=== PATIENT | female | born 1995 | race Caucasian/White ===

== ENCOUNTER 2020-06-01 11:11 | Emergency (ER) | payer OTHER, BC, SELFPAY ==
--- NOTE | ~2020-06-01 | XR_ITS ---
XR sacrum coccyx min 2V, XR lumbar spine min 4V 06/01/2020 12:39 (accession [id number]), 06/01/2020 12:40 (accession [id number]) Indication: Low back and sacral pain after fall Procedure: 5 views lumbar spine and 3 views sacrum/coccyx Comparison: No prior studies for comparison. Findings: No fracture, subluxation or dislocation. Sacral foramen are symmetric. Normal lumbar alignm ent. Mild disc narrowing at L5-S1. No evidence for spondylolisthesis. Pelvic rings are intact. Impression: 1: No acute fracture. Reviewed, dictated and finalized at location A. [employer] Impression: 1: No acute fracture. Impression: 1: No acute fracture.
[2020-06-01 11:15] VITALS: BP 150/100; PULSE 68; RESP 16; TEMP 36.2; O2SAT 100
[2020-06-01] MEDS: diazePAM (*CRX) 5 MG TABLET PO (12:23)
[2020-06-01] MEDS: KETOROLAC (*BKC) 60 MG/2 ML VIAL IM (12:25)
--- NOTE | 2020-06-01 13:13 | ED.GENADULT ---
HPI - General Adult General Chief complaint: Back Pain/Injury Stated complaint: back pain after fall at work Time Seen by Provider: 06/01/20 11:29 Source: patient Mode of arrival: ambulatory Limitations: no limitations History of Present Illness HPI narrative: Patient is a 24-year-old female who slipped at work injuring her low back landed on her buttock where she has mid line lower lumbar pain patient denies any other injuries or complaints at this time is not taken anything for her symptoms patient presents in no distress with normal gait Related Data Allergies Allergy/AdvReac Type Severity Reaction Status Date / Time No Known Allergies Allergy Verified 06/01/20 11:18 Review of Systems Review of Systems: All systems reviewed & are unremarkable except as noted in HPI and below [facility] Social History Social History (Updated 06/01/20 @ 13:15 by Jose Orourke PA-C) Smoking status: Never smoker Exam Narrative: Exam Narrative: GENERAL: Well-appearing, obese, and in no acute distress. HEAD: Normocephalic, atraumatic. EYES: PERRLA and EOMI. ENT: Nares clear, no rhinorrhea or epistaxis. Mucous membranes moist. CHEST: Clear to auscultation. No respiratory distress. No wheezes rales or rhonchi HEART: Regular rate and rhythm. No murmur heard. EXTREMITIES: Normal range of motion. No edema. Midline lumbar tenderness no thoracic or cervical tenderness SKIN: Warm, dry, no rash. NEURO: No focal deficits. Alert and oriented x3. Normal speech and gait PSYCH: Normal mood and affect. Course Course Emergency Course: Patient with negative radiographs improvement with medication will be discharged home Vital Signs Vital signs: Vital Signs Temperature 97.1 F L 06/01/20 11:15 Pulse Rate 68 06/01/20 11:15 Respiratory Rate 16 06/01/20 11:15 Blood Pressure 150/100 H 06/01/20 11:15 Pulse Oximetry 100 06/01/20 11:15 Temperature 97.1 F L 06/01/20 11:15 Pulse Rate 68 06/01/20 11:15 Respiratory Rate 16 06/01/20 11:15 Blood Pressure 150/100 H 06/01/20 11:15 Pulse Oximetry 100 06/01/20 11:15 Medical Decision Making [facility] Narrative Medical decision making narrative: Patients pain is positional in nature and localized to back without signs of cord compression or cauda equina based on neurological exam, skeletal exam and history. No fever or other significant factors to suggest osteomyelitis or spinal epidural abscess. No symptoms or signs to suggest pain is referred from abdominal or / cardiopulmonary sources. No pulsatile masses noted on exam. Patient ambulates with steady gait and is stable for outpatient management given case findings. Vital Signs Vital Signs: Vital Signs Temperature 97.1 F L 06/01/20 11:15 Pulse Rate 68 06/01/20 11:15 Respiratory Rate 16 06/01/20 11:15 Blood Pressure 150/100 H 06/01/20 11:15 Pulse Oximetry 100 06/01/20 11:15 Temperature 97.1 F L 06/01/20 11:15 Pulse Rate 68 06/01/20 11:15 Respiratory Rate 16 06/01/20 11:15 Blood Pressure 150/100 H 06/01/20 11:15 Pulse Oximetry 100 06/01/20 11:15 Imaging Data Radiologist's impression: ITS Impressions Lumbar Spine X-Ray 06/01/20 12:41 Impression: 1: No acute fracture. Sacrum and Coccyx X-Ray 06/01/20 12:41 Impression: 1: No acute fracture. Discharge Plan Discharge Clinical Impression: Acute low back pain Patient Disposition: Home, Self-Care Condition: Stable Instructions: Antibiotic Form, Acute Low Back Pain (ED) Additional Instructions: Medications as needed and prescribed. Limit lifting and bending. You may apply heat or cold to the area as needed. Follow up with your doctor for further care in the next 7 days. Contact your doctor or return to the emergency department if you develop problems with bladder or bowel function, weakness or loss of feeling in one or both of your legs, or any other serious concerns. Prescriptions: New n
== END 2020-06-01 13:26 | disposition home or self-care (01) ==
PROVIDERS: Emergency Provider Emergency Medicine; PCP Family Medicine
DX: S39.92XA Unspecified injury of lower back, initial encounter (principal); W01.0XXA Fall on same level from slipping, tripping and stumbling without subsequent striking against object, initial encounter
CPT/HCPCS: 72110; 72220; 96372; 99283; A9270; J1885

== ENCOUNTER 2021-07-11 11:12 | Outpatient (CLI) | payer BC, SELFPAY ==
--- NOTE | ~2021-07-11 | US_ITS ---
EXAMINATION: US OB /maternal detail EXAM DATE: 07/11/2021 12:17 INDICATION: anatomy survey. 2nd trimester. TECHNIQUE: Pelvic obstetrical transabdominal sonogram was performed by a technologist. There are mu ltiple grayscale and Doppler images available for interpretation. There are no earlier studies of th is gestation for comparison. FINDINGS: There is a single fetus identified in breech presentation with a heart rate of 144 beats pe r minute. The placenta is located in the anterior fundal position. Placental margin to internal cervi david os distance is 6 cm. There is no sonographic evidence of retroplacental hemorrhage identified. Th ere is subjectively expected amount of amniotic fluid. BIOMETRIC DATA: Biparietal diameter (BPD): 3.9 cm ----------------> 17 weeks 6 days. Head circumference (HC): 14.8 cm ----------------> 18 weeks 0 days. Abdominal circumference (AC): 12.8 cm ----------> 18 weeks 3 days. Femur length (FL): 2.5 cm --------------------------> 17 weeks 3 days. These measurements are concordant. HC/AC ratio is 1.16 (The 5th -- 95th percentile range is 1.08-1.27. Estimated weight is 216 g +/- 32 g. This is the 40th percentile when the currently reported cl inical gestation age 18 weeks 0 days, clinical estimated date of delivery (SHIRLEY-OPE) 12/12 is used. Fet al estimated gestational age based on measurements from this exam is also 18 weeks 0 days, with an es timated date of delivery (SHIRLEY-AUA) 12/12. ANATOMIC SURVEY: The following anatomy is identified and is sonographically normal in appearance: Cerebral ventricles Cavum septum pellucidum Cerebellum Cisterna magna Nuchal fold CTL-spine Four-chamber heart Cardiac outflow tracts Diaphragm Stomach Kidneys Bladder Three-vessel cord Cord insertion Extremities Nose/lips IMPRESSION: 1. Single fetus in breech presentation with heart rate 144 beats per minute. 2. Estimated weight of 216 grams, 40th percentile using the currently reported clinical gestat ion age of 18 weeks 0 days, SHIRLEY(OPE) 6/18. 3. Normal anatomic survey. Reviewed, dictated and finalized at location G. AL WINDER IMPRESSION: 1. Single fetus in breech presentation with heart rate 144 beats per minute. 2. Estimated weight of 216 grams, 40th percentile using the currently re ported clinical gestation age of 18 weeks 0 days, SHIRLEY(OPE) 12/12. 3. Normal anatomic survey.
== END 2021-07-11 11:13 ==
LOC: MICIMG 11:13
PROVIDERS: Visit Provider Obstetrics & Gynecology Gynecology
DX: O36.63X2 Maternal care for excessive fetal growth, third trimester, fetus 2 (principal); Z3A.18 18 weeks gestation of pregnancy
CPT/HCPCS: 76805

== ENCOUNTER 2021-08-31 10:41 | Outpatient (CLI) | payer BC, SELFPAY ==
--- NOTE | ~2021-08-31 | US_ITS ---
EXAMINATION: US OB follow up DATE: 08/31/2021 11:03 INDICATION: Size greater than dates during second trimester TECHNIQUE: Real-time ultrasound of the pelvis was performed. The interpreting radiologist was not pre sent for the study. COMPARISON: 07/11/2021 FINDINGS: There is a single living fetus in vertex presentation. The placenta is anterior/fundal and 11.5 cm from the internal cervical os. cardiac activity and movement are noted. hea rt rate is 147 beats per minute (bpm). The amniotic fluid index is 13.3 cm which is normal (normal ra nge: 9.7 cm to 22.1 cm). The following biometric data were obtained: Biparietal diameter (BPD): 6.3 cm; head circumference (HC): 23.8 cm; abdominal circumference (AC): 20 .3 cm; femur length (FL): 4.5 cm. These measurements are concordant. Estimated weight is 458 g +/- 113 g, which correlates with the 28th percentile when 12/12/2021 i s used as estimated date of delivery. As single measurements, these parameters are each equal to the following estimated gestational ages w ith ranges of +/- 2 standard deviations: BPD: 25 weeks 3 days ( 23 weeks 1 days - 27 weeks 4 days). HC: 25 weeks 6 days ( 23 weeks 6 days - 28 weeks 0 days). AC: 25 weeks 0 days ( 22 weeks 5 days - 27 weeks 1 days). FL: 24 weeks 5 days ( 22 weeks 5 days - 26 weeks 6 days). estimated gestational age based solely on measurements from this exam is 25 weeks 2 days +/- 1 weeks 5 days. IMPRESSION: 1. Single living fetus in vertex presentation. 2. Normal amniotic fluid index. 3. Estimated weight is 458 g +/- 113 g, which correlates with the 28th percentile when 2 is used as estimated date of delivery. Reviewed, dictated and finalized at location B. NE BUILDER IMPRESSION: 1. Single living fetus in vertex presentation. 2. Normal amniotic fluid index. 3. Estimated weight is 458 g +/- 113 g, which correlates with the 28th pe rcentile when 12/12/2021 is used as estimated date of delivery.
== END 2021-08-31 10:42 ==
PROVIDERS: Visit Provider Obstetrics & Gynecology Gynecology
DX: O36.63X0 Maternal care for excessive fetal growth, third trimester, not applicable or unspecified (principal)
CPT/HCPCS: 76816

== ENCOUNTER 2021-09-28 10:03 | Outpatient (CLI) | payer BC, SELFPAY ==
--- NOTE | ~2021-09-28 | US_ITS ---
EXAMINATION: US OB follow up DATE: 09/28/2021 10:22 INDICATION: Estimated size greater than expected for estimated gestational age during late seco nd trimester. TECHNIQUE: Real-time ultrasound of the pelvis was performed. The interpreting radiologist was not pre sent for the study. COMPARISON: 08/31/2021 FINDINGS: There is a single living fetus in vertex presentation. The placenta is anterior fundal. heart rate is 147 beats per minute (bpm). The amniotic fluid index is 15.3 cm, which is normal (5th%-95%: 9.2-23.1 cm at 25 weeks estimated gestational age). 7.3 The following biometric data were obtained: BPD: 7.3 cm -> 29 weeks 2 days Head circumference: 27.5 cm -> 30 weeks 0 days Abdominal circumference: 25.4 cm -> 29 weeks 4 days Femur length: 5.8 cm -> 30 weeks 3 days These measurements are concordant. Head circumference to abdominal circumference ratio: 1.08 (normal range 0.98-1.19). Estimated weight: 1465 g (+/-) 220 g or 3 lbs. 4 oz. (+/-) 8 oz. IMPRESSION: 1. Single living fetus in vertex presentation with heart rate of 147 bpm. 2. Normal amniotic fluid index of 15.3 cm. 3. Estimated weight is 58th percentile by Hadlock criteria when 12/12/2021 is used as the estima shiela date of delivery (SHIRLEY). Please correlate with clinical information or earlier ultrasounds for mos t accurate SHIRLEY. Reviewed, dictated and finalized at location B. IMPRESSION: 1. Single living fetus in vertex presentation with heart rate of 147 bpm. 2. Normal amniotic fluid index of 15.3 cm. 3. Estimated weight is 58th percentile by Hadlock criteria when 12/12/2021 is used as the estimated date of delivery (SHIRLEY). Please correlate with clinica l information or earlier ultrasounds for most accurate SHIRLEY.
== END 2021-09-28 10:04 ==
PROVIDERS: Visit Provider Obstetrics & Gynecology Gynecology
DX: O36.63X0 Maternal care for excessive fetal growth, third trimester, not applicable or unspecified (principal); Z3A.00 Weeks of gestation of pregnancy not specified
CPT/HCPCS: 76816

== ENCOUNTER 2021-11-11 14:46 | Outpatient (CLI) | payer BC, SELFPAY ==
--- NOTE | ~2021-11-11 | US_ITS ---
EXAMINATION: US OB follow up DATE: 11/11/2021 15:17 INDICATION: Gestational size greater than dates. TECHNIQUE: Real-time transabdominal obstetric ultrasound. FINDINGS: Comparison to multiple prior studies sequentially, with oldest reviewed study dated 022. There is a single living fetus in vertex presentation. The placenta is anterior/fundal without place nta previa. cardiac activity and movement is noted with a heart rate of 151 beats per minute. T he amniotic fluid volume is normal. DUC measures 13.3 cm. The following biometric data were obtained: BPD: 84mm corresponds to gestational age 33 weeks 4 days. Head circumference: 307mm corresponds to gestational age 34 weeks 2 days. Abdominal circumference: 328mm corresponds to gestational age 36 weeks 5 days. Femur length: 70mm corresponds to gestational age 35 weeks 6 days. Estimated weight: 2795grams +/- 419grams, 58.5% by Hadlock method. IMPRESSION: 1. Single living intrauterine in vertex presentation with an estimated gestational age of 35 weeks 4 days by inititial ultrasound. EDC by initial ultrasound of 12/12/2021 Appropriate interval growth. 2. Normal placenta. Reviewed, dictated and finalized at location B. IMPRESSION: 1. Single living intrauterine in vertex presentation with an estimat ed gestational age of 35 weeks 4 days by inititial ultrasound. EDC by initial u ltrasound of 12/12/2021 Appropriate interval growth. 2. Normal placenta.
== END 2021-11-11 14:47 ==
LOC: MICIMG 14:47
PROVIDERS: PCP Advanced Practice Midwife; Visit Provider Advanced Practice Midwife
DX: O36.63X3 Maternal care for excessive fetal growth, third trimester, fetus 3 (principal); Z3A.33 33 weeks gestation of pregnancy
CPT/HCPCS: 76816

== ENCOUNTER 2021-12-07 11:54 | Outpatient (CLI) | payer BC, SELFPAY ==
[2021-12-07 12:17] LABS: Hematocrit 34.2 % (37.0-47.0); Hemoglobin 11.8 g/dL (12.0-15.0); Mean Corpuscular HGB Conc 34.5 g/dl (32-36); Mean Corpuscular Hemoglobin 31.3 pg (26-34); Mean Corpuscular Volume 90.7 fl (80-100); Mean Platelet Volume 9.9 fl (7.4-10.4); Platelet Count Result 270 k/mm3 (150-375); Red Blood Count 3.77 M/mm3 (4.2-5.4); Red Cell Distribution Width 13.5 % (11.5-14.5)
[2021-12-08 11:46] LABS: Rapid Plasma Reagin Non-Reactive (NonReactive)
== END 2021-12-07 11:55 | disposition home or self-care (01) ==
LOC: ANHLAB 11:59
PROVIDERS: PCP Advanced Practice Midwife; Visit Provider Obstetrics & Gynecology Gynecology
DX: Z01.818 Encounter for other preprocedural examination (principal)
CPT/HCPCS: 36415; 85027; 86592; 86850; 86900; 86901

== ENCOUNTER 2021-12-08 05:19 | Inpatient (IN) | payer BC, SELFPAY ==
--- NOTE | 2021-12-07 15:10 | P.PNAN_ITS ---
Anes - Initial Pre Proc Eval Procedure: Operation Date: 12/08/21 07:30 Proposed Procedures p Repeat Section - Nancy Perrin MD Date/Time: 12/07/21 15:10 Surgeon: Nancy Perrin MD Pre Op Diagnosis: C/S Patient Data Age: 26 Gender: F Height: Weight: Allergies Allergy/AdvReac Type Severity Reaction Status Date / Time No Known Allergies Allergy Verified 06/01/20 11:18 Home Medications Medication Instructions Recorded Confirmed Type ergocalciferol (vitamin D2) 1,250 1 cap PO WEEKLY 12/08/21 12/08/21 History mcg (50,000 unit) capsule prenat.vits,david,[id number] 1 tablet PO DAILY 12/08/21 12/08/21 History Patient hx anesthesia problems: none Family hx anesthesia problems: none Results Review: All pre-operative results and documents have been reviewed as part of the pre- operative evaluation. [facility] Past Medical History Medical History (Updated 12/08/21 @ 06:46 by Mark Cantu DO) Gestational diabetes 1st preganncy Pre-eclampsia 1st Surgical History Surgical History (Updated 12/07/21 @ 15:11 by Mark Cantu DO) History of cholecystectomy History of sleeve gastrectomy Family History Family History (Updated 11/16/21 @ 15:20 by Byron Van RN) Grandparent Congestive heart failure Diabetes mellitus Social History Social History (Updated 06/01/20 @ 13:15 by Jose Orourke, PA-C) Smoking status: Never smoker Substance use: never Spiritual care concerns: No Anes - Eval Final PreProcedure Day of Procedure 12/07/21 15:10 Patient weight: morbidly obese Heart: regular rate and rhythm Lungs: clear to auscultation and normal air movement Airway: Mallampati scale class II Neurological: alert and oriented Last oral intake: >/= 8 hours ASA classification: III Emergent: no Anesthetic plan: proceed Anesthesia type and monitoring: regional spinal and standard monitoring Results Review: All pre-operative results and documents have been reviewed as part of the pre- operative evaluation. Informed Consent: The patient's anesthetic plan and its attendant risks and benefits were discussed with the patient/family/POA. Questions were solicited and answers provided to the satisfaction of the patient/family/POA.
[2021-12-08] VITALS (66 sets, daily range): BP systolic 104–143; BP diastolic 43–101; PULSE 50–84; RESP 14–18; TEMP 36–36.7; O2SAT 89–100; BMI 42.0
--- NOTE | 2021-12-08 05:32 | LDADM ---
This patient, Fatemeh Reaves, was admitted to Labor/Delivery/Recovery 120 on 12/08/21 at 05:19. Plans for labor, pain management and were discussed with patient. Patient/family oriented to hospital policies and general routines including ID bracelet, bed and alarms, visiting hours, pain management, procedures, bathroom and other care routines, personal items, smoking policy, room service/diet and guest tray routines, security routines, and visiting hours. Patient/Family are encouraged to report perceived risks to care and to ask questions if they do not understand what they are told or what they should do. See OBIX for further documentation.
[2021-12-08] MEDS: LACTATED RINGERS 1,000 ML 125 ML IV CONT ×2 (05:48→06:28)
--- NOTE | 2021-12-08 06:55 | WPDHPUPDATE1 ---
History and Physical Update Update Date/Time: 12/08/21 06:55 History and Physical has been reviewed, including an updated exam of the patient. There are NO changes in the patient's condition. Risks, benefits, and alternatives have been discussed and questions answered. Patient agrees to proceed with procedure.
--- NOTE | 2021-12-08 06:56 | PM.IMHP ---
H&P: HPI History of Present Illness Date/Time: 12/08/21 06:56 Chief Complaint: Repeat Narrative: the patient is a 26-year-old 2 para 1 at 39 and 3/7 weeks admitted for repeat low-transverse section. Vaginal after and repeat were reviewed. Patient declines trial of labor.Current has been uncomplicated labs B positive, rubella nonimmune, RPR negative, HIV negative, group B strep negative, hepatitis-B surface antigen negative. Review of Systems Review of Systems: not repeated day of surgery; patient states no changes in status PMF Past Medical History Medical History (Updated 12/08/21 @ 06:59 by Nancy Perrin MD) Gestational diabetes 1st preganncy HTN (hypertension) prior to gastric sleeve Pre-eclampsia 1st Surgical History Surgical History (Updated 12/08/21 @ 06:58 by Nancy Perrin MD) History of History of cholecystectomy History of sleeve gastrectomy Family History Family History (Updated 11/16/21 @ 15:20 by Byron Van RN) Grandparent Congestive heart failure Diabetes mellitus Social History Social History (Updated 06/01/20 @ 13:15 by Jose Orourke, PA-C) Smoking status: Never smoker Substance use: never Spiritual care concerns: No Meds Home Medications and Allergies Home Medications Medication Instructions Recorded Confirmed Type ergocalciferol (vitamin D2) 1,250 1 cap PO WEEKLY 12/08/21 12/08/21 History mcg (50,000 unit) capsule prenat.vits,david,[id number] 1 tablet PO DAILY 12/08/21 12/08/21 History Allergies Allergy/AdvReac Type Severity Reaction Status Date / Time No Known Allergies Allergy Verified 06/01/20 11:18 Vital Signs Vital Signs - 24 hr 12/08/21 05:33 Pulse Rate 84 Blood Pressure 132/88 Exam Const: General: healthy appearing and alert Orientation/consciousness: patient oriented x3 GI: GI Palp: Yes Soft to palpation, No Tenderness to palpation present (GI) and Yes Other GI palpation findings present ( fundal height 42cm) : External Female Exam: normal external appearance Speculum Exam - Vagina: normal appearance of the vagina and normal vaginal discharge Speculum Exam - Cervix: normal appearance of the cervix Bimanual exam- vagina & uterus: consistency normal Bimanual Exam- Adnexa, other: normal adnexae and No adnexal tenderness Neuro: General: patient oriented x3 Assessment and Plan Assessment and plan (1) History of : Code(s): Z98.891 - History of uterine scar from previous surgery Status: Acute Assessment and Plan: plan to proceed with repeat section (2) 39 weeks gestation of : Code(s): Z3A.39 - 39 weeks gestation of Status: Acute
--- NOTE | 2021-12-08 08:02 | P.OP_ITS ---
Procedure Note - Detailed Date of Procedure 12/08/21 Pre-op Diagnosis Intrauterine at 39 and 4/7 Previous section Post-op Diagnosis Same Procedure Performed Low transverse section repeat Surgeon Nancy Perrin MD Anesthesia Spinal Findings Female weighing 7lb 5oz with 9 and 9 Apgars. Normal-appearing tubes, ovaries, and uterus. Description of Procedure The patient was taken to the operating room and placed under anesthesia in the dorsal supine position with a leftward tilt. Once anesthesia was deemed adequate she was prepped and draped in usual sterile fashion. A Pfannenstiel skin incision was made through her prior incision and carried down to the underlying layer of fascia which was nicked in the midline with a scalpel. The fascial incision was extended laterally using Tanner scissors. [facility] was used to tent the fascia which was then dissected off using sharp dissection. The rectus muscles were in the midline and the peritoneum tented and entered with Metzenbaum scissors. The peritoneal incision was extended laterally using blunt traction. Bladder blade is placed and the vesicouterine peritoneum tented and entered with Metzenbaum scissors. The incision was extended laterally and the bladder flap created digitally. The bladder blade is replaced. The lower uterine segment was incised in a transverse fashion with the scalpel. The membranes are ruptured and clear fluid noted. The incision is extended laterally using blunt traction. The infant head is delivered through the incision while the employee relations assistant applied fundal pressure. The remainder of the was fully delivered and the cord clamped and cut. The infant was handed to the waiting nursery nurse. Cord gases and cord blood were drawn. The placenta was removed using manual traction. The uterus is cleared of all clots and debris and exteriorized. The uterine incision was closed using 0 Monocryl in a running locked fashion with the same suture used to imbricate. Two additional [id number] sutures are required for hemostasis. The cul-de-sac is irrigated and the uterus returned to the abdomen. The gutters are irrigated. The incision was again inspected noted to be hemostatic. The fascia was closed using 0 Vicryl in a running fashion. Subcutaneous tissues are irrigated and made hemostatic using Bovie cautery. Skin incision was closed using 4-0 Vicryl in a subcuticular fashion. Dermaflex was placed over the incision. Sponge, needle, and instrument counts are correct per the OR staff. The patient was taken to recovery in stable condition. Estimated Blood Loss 415 Drains Yes (Pearson catheter) Packing No Pathology None sent Complications No immediate complications Condition Stable Disposition Floor
--- NOTE | 2021-12-08 08:06 | PM.OBDSVD ---
DS: Admitting Diagnosis Discharge Date 12/10/21 Admitting Diagnosis Intrauterine at 39 and 4/7 weeks presenting for repeat DS: Discharge Diagnosis Discharge Diagnosis (1) 39 weeks gestation of : Code(s): Z3A.39 - 39 weeks gestation of Status: Acute (2) History of : Code(s): Z98.891 - History of uterine scar from previous surgery Status: Acute (3) delivery delivered: Code(s): O82 - Encounter for delivery without indication Status: Acute OB - DS: Summary OB Procedures : Ultrasound OB Procedures Intrapartum: low cervical, transverse OB Procedures: : None Peripartum Data Delivery Method: Section Procedures: Procedures Operation Date: 12/08/21 07:30 <No data on this case meets the specified criteria> complications: none Status at Discharge Functional status at discharge: independent ambulation Overall status at discharge: patient is progressing back to baseline Time Spent with Patient Time attestation: Total time spent providing and/or coordinating discharge services: Discharge Plan Discharge Attending physician on discharge: Nancy Perrin Discharging Clinician: Nancy Perrin Anticipated Discharge Date/Time: 12/10/21 08:07 Patient Disposition: Home, Self-Care Activity: may shower, may drive after 2 weeks and pelvic rest Diet: regular Wound Care Instructions: incision open to air Patient Instructions: Antibiotic Form Stand Alone Forms: General Discharge Information Follow-up/Referrals: Nancy Perrin MD [Physician] - 1 Week (And 6 weeks) Discharge Medications: New hydrocodone-acetaminophen 5-325 mg tablet 1 tablet PO Q4H PRN (Reason: pain) Qty: 20 0RF norethindrone (contraceptive) 0.35 mg tablet 0.35 mg PO DAILY Qty: 84 3RF No Action ergocalciferol (vitamin D2) 1,250 mcg (50,000 unit) capsule 1 cap PO WEEKLY Vitamin Tablet 1 tablet PO DAILY Date of admission: 12/08/21 05:19 Primary Care Provider: Kavita Paz Admitting Provider: Nancy Perrin Attending physician on admission: Nancy Perrin Condition: Stable
[2021-12-08] MEDS: OXYTOCIN 30 UNITS/NS 500 ML 30 UNITS/500 ML BAG 125 UNITS IV CONT (09:00)
[2021-12-08] MEDS: ONDANSETRON INJ 4 MG/2 ML VIAL IV PUSH (10:12)
--- NOTE | 2021-12-08 10:33 | OBPPTRN ---
Patient transferred to post room #286 via stretcher. Support person present. Oriented to unit, room, information board, rooming in, admission packet and security measures. Patient verbalizes understanding.
[2021-12-08] MEDS: diphenhydrAMINE HCl INJ 50 MG/ML VIAL 12.5 MG IV PUSH (11:21)
[2021-12-08] MEDS: KETOROLAC 30 MG/ML VIAL (*BKC) IV PUSH (11:23)
[2021-12-08] MEDS: DEXTROSE 5%/0.45% SOD CHL 1,000 ML 125 ML IV CONT (13:17)
[2021-12-08] MEDS: MULTIVIT/MIN/PREN/FOL AC/IRON TABLET 1 TAB PO (16:16)
[2021-12-08] MEDS: DOCUSATE SODIUM 100 MG CAPSULE PO (16:16)
[2021-12-09] VITALS: BP 126/84; PULSE 75; RESP 18; TEMP 36.9
[2021-12-09] MEDS: IBUPROFEN 600 MG TABLET PO ×3 (04:15→19:42)
[2021-12-09] MEDS: HYDROcodone/acetaminophen (*CRX) 5-325 MG TABLET 1 TAB PO ×4 (04:15→17:00)
[2021-12-09 04:20] VITALS: BP 124/86; PULSE 60; RESP 16; TEMP 36.6
[2021-12-09 05:21] LABS: Basophils Absolute Auto 0.1 K/mm3 (0.0-0.1); Basophils Percent Auto 0.4 % (0.2-1.2); Eosinophils Absolute Auto 0.2 K/mm3 (0-0.3); Eosinophils Percent Auto 2.1 % (0-4.4); Hematocrit 33.5 % (37.0-47.0); Hemoglobin 11.4 g/dL (12.0-15.0); Immature Granulocyte Absolute 0.09 K/mm3 (0.00-0.031); Immature Granulocyte Percent A 0.8 % (0-0.5); Lymphocytes Absolute Auto 0.77 K/mm3 (0.9-3.2); Lymphocytes Percent Auto 6.8 % (18.3-44.2); Mean Corpuscular Hemoglobin 31.2 pg (26-34); Mean Corpuscular Volume 91.8 fl (80-100); Monocytes Absolute Auto 1.1 K/mm3 (0.1-0.6); Monocytes Percent Auto 9.7 % (2.6-8.5); Neutrophils Percent Auto 80.2 % (45.5-73.1); Platelet Count Result 225 k/mm3 (150-375); Red Blood Count 3.65 M/mm3 (4.2-5.4); Red Cell Distribution Width 13.3 % (11.5-14.5); White Blood Count 11.3 K/mm3 (4.5-10.0)
--- NOTE | 2021-12-09 07:48 | P.PNOB_ITS ---
OB - PN: Subj Subjective Date/time seen: 12/09/21 07:48 Patient comments: no complaints and pain well controlled baby status: doing well OB - PN: Obj Data Labs CBC & Chem 7: 12/09/21 04:08 Labs: Laboratory Results - last 24 hr 12/09/21 04:08 WBC 11.3 H RBC 3.65 L Hgb 11.4 L Hct 33.5 L MCV 91.8 MCH 31.2 MCHC 34.0 RDW 13.3 Plt Count 225 MPV 10.0 Immature Gran % (Auto) 0.8 H Neut % (Auto) 80.2 H Lymph % (Auto) 6.8 L [place] % (Auto) 9.7 H Eos % (Auto) 2.1 Baso % (Auto) 0.4 Lymph # (Auto) 0.77 L [place] # (Auto) 1.1 H Eos # (Auto) 0.2 Baso # (Auto) 0.1 Abs Immat Gran (auto) 0.09 H Absolute Neuts (auto) 9.0 H Absolute Nucleated RBC 0.0 Nucleated RBC % 0.0 OB - PN A/P Plan day: 1 Plan: routine care Time Spent With Patient Time: Total time spent is greater than 50% in coordination of care (as documented) at patient's floor/unit and/or counseling patient: Exam Narrative: inc c/d/i : Bimanual exam- vagina & uterus: other (Uterus firm, nt @U)
--- NOTE | 2021-12-09 08:01 | WPDANLDNPN2 ---
Anes-Prog Note L&D-Neuraxial Date/Time: 12/09/21 08:01 Neuraxial medications: intrathecal PF morphine Opiod-related complaints: none Patient feedback: Patient satisfied with post-operative pain management.
--- NOTE | 2021-12-09 08:01 | WPDANLDPN2 ---
Anes-Prog Note L&D Date/Time: 12/09/21 08:01 Comfortable throughout: section Neuraxial method: spinal Epidural/Spinal procedure site: clean & non-tender Neuro status: Neuro function grossly intact. Cardiovascular status: normal Respiratory status: normal Airway patency: baseline Mental status: baseline Post-Op hydration status: normal Vital Signs: Last Vital Signs Temp 36.6 C 12/09/21 04:20 Pulse 60 12/09/21 04:20 Resp 16 12/09/21 04:20 BP 124/86 12/09/21 04:20 Pulse Ox 100 12/08/21 16:00 O2 Del Method Room Air 12/09/21 04:20 Pain score (VAS): 0 I/O: Intake & Output 12/08/21 12/09/21 12/09/21 23:59 07:59 15:59 Intake Total 1800 700 Output Total 150 1200 Balance 1650 -500 Post-procedural complaints: none Patient feedback: Patient satisfied with anesthetic care.
[2021-12-09 08:20] VITALS: BP 119/90; PULSE 64; RESP 18; TEMP 36.6; O2SAT 97
[2021-12-09] MEDS: DOCUSATE SODIUM 100 MG CAPSULE PO ×2 (08:24→17:00)
[2021-12-09] MEDS: MULTIVIT/MIN/PREN/FOL AC/IRON TABLET 1 TAB PO (08:24)
--- NOTE | 2021-12-09 08:36 | WPDANLDPN2 ---
Anes-Prog Note L&D Date/Time: 12/09/21 08:36 Comfortable throughout: section Neuraxial method: spinal Epidural/Spinal procedure site: clean & non-tender Neuro status: Neuro function grossly intact. Cardiovascular status: normal Respiratory status: normal Airway patency: baseline Mental status: baseline Post-Op hydration status: normal Vital Signs: Last Vital Signs Temp 36.6 C 12/09/21 04:20 Pulse 60 12/09/21 04:20 Resp 16 12/09/21 04:20 BP 124/86 12/09/21 04:20 Pulse Ox 100 12/08/21 16:00 O2 Del Method Room Air 12/09/21 04:20 Pain score (VAS): 3 I/O: Intake & Output 12/08/21 12/09/21 12/09/21 23:59 07:59 15:59 Intake Total 1800 700 Output Total 150 1200 Balance 1650 -500 Post-procedural complaints: none Patient feedback: Patient satisfied with anesthetic care.
--- NOTE | 2021-12-09 08:36 | WPDANLDNPN2 ---
Anes-Prog Note L&D-Neuraxial Date/Time: 12/09/21 08:36 Neuraxial medications: intrathecal PF morphine Opiod-related complaints: none Patient feedback: Patient satisfied with post-operative pain management.
[2021-12-09] MEDS: SIMETHICONE 80 MG TAB.CHEW PO ×2 (12:21→19:36)
--- NOTE | 2021-12-09 14:54 | PC.NURSE ---
[id number] Introductions were made, then consulted with patient to assess needs related to . Mother led the conversation with her experience feeding her so far. Mother works well with her . Encouraged understanding of the benefits of skin to skin (unwrapping infant and placing vertically on her chest), responsive feeding and how to watch for early feeding signs, frequency of feeding on demand about every 8-12 times in 24 hours (every 2-3 hours), milk production, duration of feeding, signs of adequate intake/output and how to record on the feeding sheet. Reviewed positioning and ear, shoulder, hip alignment, supporting the breast, asymmetrical latch (off-center), and leading with the chin with a big open side gape. Reviewed big, open, wide gape. latched optimally to the left breast in football position. Education given to mother of how to visualize suck/swallow ratios and drinking at the breast. was able to maintain latch without discomfort to mother. Nipple care reviewed with optimal latch and good positioning. Resources used to facilitate learning were used with the latch handout and mom/baby guide. Mother voiced understanding of responsive feedings, stimulating with skin to skin, talking to infant to encourage if it has been 2 -3 hours since the start of the last , to call if infant does not latch or there is discomfort with . Reported to the primary RN.
[2021-12-09 19:35] VITALS: BP 130/85; PULSE 73; RESP 14; TEMP 36.9; O2SAT 96
[2021-12-10] MEDS: HYDROcodone/acetaminophen (*CRX) 5-325 MG TABLET 1 TAB PO ×2 (04:15→08:51)
[2021-12-10] MEDS: IBUPROFEN 600 MG TABLET PO (04:15)
[2021-12-10] MEDS: SIMETHICONE 80 MG TAB.CHEW PO ×2 (04:19→08:54)
[2021-12-10 08:15] VITALS: BP 133/90; PULSE 78; RESP 18; TEMP 37.1; O2SAT 97
[2021-12-10] MEDS: MULTIVIT/MIN/PREN/FOL AC/IRON TABLET 1 TAB PO (08:51)
[2021-12-10] MEDS: DOCUSATE SODIUM 100 MG CAPSULE PO (08:51)
--- NOTE | 2021-12-10 10:58 | PM.OBPNVD ---
OB - PN: Subj Subjective Date/time seen: 12/10/21 10:58 Patient comments: no complaints baby status: doing well OB - PN: Obj Data Labs CBC & Chem 7: 12/09/21 04:08 OB - PN A/P Plan day: 2 Plan: routine care, discharge home and follow up 6 weeks (and 1 wk) Time Spent With Patient Time: Total time spent is greater than 50% in coordination of care (as documented) at patient's floor/unit and/or counseling patient: Exam Narrative: inc c/d/i : Bimanual exam- vagina & uterus: other (Uterus firm, nt @U)
[2021-12-10] MEDS: MEASLES,MUMPS,RUBELLA VACCINE 0.5 ML VIAL SUB-Q (12:07)
== END 2021-12-10 12:33 | disposition home or self-care (01) | DRG 788 ==
LOC: ANHLDR 08:07 → ANHOB2 10:36
PROVIDERS: Admitting Provider Obstetrics & Gynecology Gynecology; PCP Advanced Practice Midwife; Visit Provider Obstetrics & Gynecology Gynecology
PROC: 10D00Z1 Extraction of Products of Conception, Low, Open Approach (ICD-10-PCS; CPT 59514; principal; 2021-12-08 07:30)
DX: O34.211 Maternal care for low transverse scar from previous cesarean delivery (principal); Z37.0 Single live birth; Z3A.39 39 weeks gestation of pregnancy
CPT/HCPCS: 36415; 85025; 85027; 86592; 86850; 86900; 86901; 90710; A9270; J0131; J1200; J1885; J2274; J2370; J2405; J2590; J7120

== ENCOUNTER 2022-10-20 08:56 | Outpatient (CLI) | payer BC, MEDICAID, SELFPAY ==
--- NOTE | ~2022-10-20 | US_ITS ---
EXAMINATION: US OB <= 14 weeks fetus DATE: 10/20/2022 09:25 INDICATION: Uncertain dates. Spotting. TECHNIQUE: Real-time transabdominal pelvic ultrasound was performed. COMPARISON: None. FINDINGS: The uterus measures 14.0 x 9.1 x 7.0 cm. There is an intrauterine gestational sac. A yolk sac is iden tified. The crown rump length measures 2.2 cm, which correlates with an estimated gestational age of 8 weeks and 6 day(s) (+/-) 6 day(s). heart motion is identified measuring 175 beats per minute (bpm) by M-mode Doppler. The right ovary measures 3.0 x 3.0 x 1.7 cm. The left ovary measures 2.8 x 2.6 x 3.0 cm. There is no free fluid in the pelvis. IMPRESSION: 1. Single living intrauterine gestation with estimated date of delivery of 05/26/2023. Reviewed, dictated and finalized at location A. IMPRESSION: 1. Single living intrauterine gestation with estimated date of delivery of .
== END 2022-10-20 08:57 | disposition home or self-care (01) ==
LOC: ANHIMG 09:02
PROVIDERS: Visit Provider Advanced Practice Midwife
DX: O26.851 Spotting complicating pregnancy, first trimester (principal)
CPT/HCPCS: 76801

== ENCOUNTER 2023-05-18 09:40 | Outpatient (CLI) | payer OTHER, SELFPAY ==
--- NOTE | ~2023-05-18 | US_ITS ---
EXAMINATION: US OB BPP wo non-stress DATE: 05/18/2023 11:26 INDICATION: Chronic hypertension, third trimester TECHNIQUE: Real-time pelvic ultrasound was performed. The interpreting radiologist was not present fo r the study. COMPARISON: None. FINDINGS: There is a single living fetus in vertex presentation. The placenta is fundal. heart rate is 12 9 beats per minute (bpm). Biophysical profile performed by the technologist: breathing (30 sec sustained breathing in 30 minutes): 2 out of 2 movement (3 gross body movements in 30 minutes): 2 out of 2 tone (one episode of obmopti-npqbdcxwa-ukxkxlh limb movement): 2 out of 2 Amniotic fluid pocket (2 cm): 2 out of 2 Total score: 8 out of 8 IMPRESSION: 1. Single living fetus in vertex presentation. 2. Biophysical profile 8 out of 8. Reviewed, dictated and finalized at location F. ING LIAISON
[2023-05-18 10:14] VITALS: BP 134/91; PULSE 84
[2023-05-18 10:16] VITALS: BP 133/84; PULSE 85
[2023-05-18 10:29] LABS: Alanine Aminotransferase 22 U/L (6-35); Albumin Level 3.4 g/dL (3.5-5.1); Alkaline Phosphatase 100 U/L (38-126); Anion Gap 6 mmol/L (8-16); Aspartate Amino Transferase 24 U/L (14-36); Basophils Percent Auto 0.3 % (0.2-1.2); Bilirubin,Total 0.9 mg/dL (0.2-1.3); Blood Urea Nitrogen 10 mg/dL (7-17); Calcium 8.7 mg/dL (8.4-10.2); Carbon Dioxide 25 mmol/L (22-30); Chloride 102 mmol/L (98-107); Eosinophils Absolute Auto 0.2 K/mm3 (0-0.3); Eosinophils Percent Auto 2.4 % (0-4.4); Estimated Glomerular Filt Rate > 60; Glucose 72 mg/dL (65-110); Hematocrit 36.9 % (37.0-47.0); Hemoglobin 12.4 g/dL (12.0-15.0); Immature Granulocyte Absolute 0.08 K/mm3 (0.00-0.031); Immature Granulocyte Percent A 0.9 % (0-0.5); Lymphocytes Absolute Auto 0.92 K/mm3 (0.9-3.2); Lymphocytes Percent Auto 10.2 % (18.3-44.2); Mean Corpuscular HGB Conc 33.6 g/dl (32-36); Mean Corpuscular Hemoglobin 31.4 pg (26-34); Mean Corpuscular Volume 93.4 fl (80-100); Mean Platelet Volume 9.8 fl (7.4-10.4); Monocytes Absolute Auto 0.8 K/mm3 (0.1-0.6); Monocytes Percent Auto 8.7 % (2.6-8.5); Neutrophils Percent Auto 77.5 % (45.5-73.1); Platelet Count Result 215 k/mm3 (150-375); Potassium 3.7 mmol/L (3.4-5.0); Red Blood Count 3.95 M/mm3 (4.2-5.4); Red Cell Distribution Width 13.7 % (11.5-14.5); Sodium 133 mmol/L (137-145); Uric Acid 4.6 mg/dL (2.5-7.5)
[2023-05-18 10:31] VITALS: BP 133/90; PULSE 88
[2023-05-18 10:44] VITALS: BMI 46.1
[2023-05-18 10:46] VITALS: BP 123/83; PULSE 86
[2023-05-18 10:55] LABS: Total Protein Urine Random 12 mg/dL; Ur Ttl Prot Creatinine Ratio 0.13 mg/mg (0-0.20)
[2023-05-18 10:57] LABS: Appearance Urine Clear (Clear); Bacteria Urine 1+ /hpf; Bilirubin Urine Negative (Negative); Blood Urine Negative (Negative); Color Urine Dark Yellow (Yellow); Glucose Urine UA Negative (Negative); Ketones Urine Negative (Negative); Leukocyte Esterase Ur Trace LEU/UL (Negative); Nitrate Urine Negative (Negative); Non Pathogenic Casts 0-2; Protein Urine Negative (Negative); RBC Urine 0-2 /hpf (0-2); Specific Grav Ur 1.019 (1.001-1.035); Squamous Epithelial Cell Urine Few /hpf (Few)
[2023-05-18 11:01] VITALS: BP 123/81; PULSE 87
[2023-05-18 11:03] LABS: Add Urine Microscopic? YES
--- NOTE | 2023-05-18 12:05 | PC.NURSE ---
Spoke with GUSTAVO Walls. Reported FHR tracings, vitals, and lab results. No contractions noted during her duration here. Reported BPP results as 02/01. Ok to d/c per Lillie mota.
[2023-05-18 12:18] VITALS: BP 123/81; PULSE 87
== END 2023-05-18 12:15 | disposition home or self-care (01) ==
LOC: ANHOBOP 09:47 → ANHOBPP 09:47
PROVIDERS: Advanced Practice Midwife; Visit Provider Obstetrics & Gynecology Gynecology
DX: O13.9 Gestational [pregnancy-induced] hypertension without significant proteinuria, unspecified trimester (principal); Z3A.00 Weeks of gestation of pregnancy not specified
CPT/HCPCS: 36415; 59025; 76819; 80053; 81001; 82570; 84156; 84550; 85025; 87086; 87088; 99199

== ENCOUNTER 2023-05-22 14:38 | Outpatient (RCR) | payer OTHER, SELFPAY ==
[2023-05-22 15:21] VITALS: BP 118/79; PULSE 91
== END 2023-08-20 23:59 | disposition home or self-care (01) ==
LOC: ANHOBOP 14:38
PROVIDERS: Visit Provider Obstetrics & Gynecology Gynecology
DX: O36.8130 Decreased fetal movements, third trimester, not applicable or unspecified (principal); Z3A.39 39 weeks gestation of pregnancy
CPT/HCPCS: 59025

== ENCOUNTER 2023-05-23 12:24 | Outpatient (CLI) | payer OTHER, SELFPAY ==
[2023-05-23 13:11] LABS: Hematocrit 38.3 % (37.0-47.0); Hemoglobin 12.6 g/dL (12.0-15.0); Mean Corpuscular HGB Conc 32.9 g/dl (32-36); Mean Corpuscular Volume 94.3 fl (80-100); Mean Platelet Volume 10.2 fl (7.4-10.4); Platelet Count Result 236 k/mm3 (150-375); Red Blood Count 4.06 M/mm3 (4.2-5.4); Red Cell Distribution Width 13.6 % (11.5-14.5); White Blood Count 9.6 K/mm3 (4.5-10.0)
[2023-05-23 14:53] LABS: Rapid Plasma Reagin Non-Reactive (NonReactive)
== END 2023-05-23 12:25 | disposition home or self-care (01) ==
LOC: ANHLAB 12:26
PROVIDERS: Visit Provider Obstetrics & Gynecology Gynecology
DX: Z01.818 Encounter for other preprocedural examination (principal)
CPT/HCPCS: 36415; 85027; 86592; 86850; 86900; 86901

== ENCOUNTER 2023-05-24 05:17 | Inpatient (IN) | payer OTHER, SELFPAY ==
[2023-05-24] VITALS (49 sets, daily range): BP systolic 90–140; BP diastolic 53–92; PULSE 70–96; RESP 13–17; TEMP 36.6–36.9; O2SAT 91–100; BMI 45.3
--- NOTE | 2023-05-24 05:59 | LDADM ---
This patient, Fatemeh Reaves, was admitted to Labor/Delivery/Recovery 120 on 05/24/23 at 05:17. Plans for labor, pain management and were discussed with patient. Patient/family oriented to hospital policies and general routines including ID bracelet, bed and alarms, visiting hours, pain management, procedures, bathroom and other care routines, personal items, smoking policy, room service/diet and guest tray routines, security routines, and visiting hours. Patient/Family are encouraged to report perceived risks to care and to ask questions if they do not understand what they are told or what they should do. See OBIX for further documentation.
--- NOTE | 2023-05-24 06:33 | WPDANESEPPF ---
Anes - Initial Pre Proc Eval Procedure: Operation Date: 05/24/23 07:30 Proposed Procedures p Repeat Section - Nancy Perrin MD Date/Time: 05/24/23 06:33 Surgeon: Nancy Perrin MD Pre Op Diagnosis: C/S Patient Data Age: 27 Gender: F Height: 1.69 m Weight: 129.5 kg Last Vital Signs Pulse 96 05/24/23 06:24 BP 117/53 L 05/24/23 06:24 O2 Del Method Room Air 05/24/23 06:09 Allergies Allergy/AdvReac Type Severity Reaction Status Date / Time No Known Allergies Allergy Verified 05/18/23 10:21 Home Medications Medication Instructions Recorded Confirmed Type ergocalciferol (vitamin D2) 1,250 1 cap PO WEEKLY 12/08/21 05/24/23 History mcg (50,000 unit) capsule prenat.vits,david,rir-zozn-jcypw 1 tablet PO DAILY 12/08/21 05/24/23 History multivitamin (Daily Multi-Vitamin 1 tablet PO DAILY 04/23/23 05/18/23 History tablet) Patient hx anesthesia problems: none Family hx anesthesia problems: none Results Review: All pre-operative results and documents have been reviewed as part of the pre-operative evaluation. [facility] Past Medical History Medical History (Updated 12/09/21 @ 07:50 by Nancy Perrin MD) Gestational diabetes 1st preganncy HTN (hypertension) prior to gastric sleeve Pre-eclampsia 1st Surgical History Surgical History (Updated 12/08/21 @ 06:58 by Nancy Perrin MD) History of History of cholecystectomy History of sleeve gastrectomy Family History Family History Grandparent Congestive heart failure Diabetes mellitus Social History Social History (Updated 06/01/20 @ 13:15 by Jose Orourke, PA-C) Smoking status: Never smoker Second hand tobacco smoke exposure: No Substance use: never Lack of Transportation: No Lack of Food: Never True Current Housing: I Have Housing Concerned About Future Housing: No Difficulty Paying Gas/Electric Bills: No Difficulty Paying for Meds: No Currently Unemployed: No Education: High School Diploma/GED Difficulty w/ Childcare or Family Care: No Spiritual care concerns: No Anes - Eval Final PreProcedure Day of Procedure 05/24/23 06:33 Patient weight: morbidly obese Heart: regular rate and rhythm Lungs: clear to auscultation and normal air movement Airway: Mallampati scale class II Neurological: alert and oriented Last oral intake: >/= 8 hours ASA classification: III Emergent: no Anesthetic plan: proceed Anesthesia type and monitoring: regional spinal and standard monitoring Results Review: All pre-operative results and documents have been reviewed as part of the pre-operative evaluation. Informed Consent: The patient's anesthetic plan and its attendant risks and benefits were discussed with the patient/family/POA. Questions were solicited and answers provided to the satisfaction of the patient/family/POA.
--- NOTE | 2023-05-24 07:12 | WPDHPUPDATE1 ---
History and Physical Update Update Date/Time: 05/24/23 07:12 History and Physical has been reviewed, including an updated exam of the patient. There are NO changes in the patient's condition. Risks, benefits, and alternatives have been discussed and questions answered. Patient agrees to proceed with procedure.
--- NOTE | 2023-05-24 07:13 | PM.IMHP ---
H&P: HPI History of Present Illness Date/Time: 05/24/23 07:13 Chief Complaint: Previous section x2 intrauterine at 39 weeks Narrative: The patient is a 27-year-old 3 para 2 being admitted at 39 weeks for repeat section. The has been complicated by an abnormal noninvasive test high risk for Nava syndrome. Nonstress tests have been normal and growth has been normal. labs B positive, rubella nonimmune, RPR negative hepatitis-B surface antigen negative, HIV negative, group B strep positive. Review of Systems Review of Systems: not repeated day of surgery; patient states no changes in status [facility] Past Medical History Medical History (Updated 05/24/23 @ 07:15 by Nancy Perrin MD) Gestational diabetes 1st preganncy History of herpes simplex type 2 infection patient has been on Valtrex since 36 weeks HTN (hypertension) prior to gastric sleeve Pre-eclampsia 1st Surgical History Surgical History (Updated 05/24/23 @ 07:15 by Nancy Perrin MD) History of X2 History of cholecystectomy History of sleeve gastrectomy Family History Family History Grandparent Congestive heart failure Diabetes mellitus Social History Social History (Updated 06/01/20 @ 13:15 by Jose Orourke, PA-C) Smoking status: Never smoker Second hand tobacco smoke exposure: No Substance use: never Lack of Transportation: No Lack of Food: Never True Current Housing: I Have Housing Concerned About Future Housing: No Difficulty Paying Gas/Electric Bills: No Difficulty Paying for Meds: No Currently Unemployed: No Education: High School Diploma/GED Difficulty w/ Childcare or Family Care: No Spiritual care concerns: No Meds Home Medications and Allergies Home Medications Medication Instructions Recorded Confirmed Type ergocalciferol (vitamin D2) 1,250 1 cap PO WEEKLY 12/08/21 05/24/23 History mcg (50,000 unit) capsule prenat.vits,david,ewx-tccb-thlxd 1 tablet PO DAILY 12/08/21 05/24/23 History multivitamin (Daily Multi-Vitamin 1 tablet PO DAILY 04/23/23 05/18/23 History tablet) Allergies Allergy/AdvReac Type Severity Reaction Status Date / Time No Known Allergies Allergy Verified 05/18/23 10:21 Vital Signs Vital Signs - 24 hr 05/24/23 06:09 05/24/23 06:24 05/24/23 06:44 Temperature 98.2 F Pulse Rate 96 Blood Pressure 117/53 L Oxygen Delivery Room Air Exam Const: General: healthy appearing and alert Orientation/consciousness: patient oriented x3 Resp: Effort & Inspection: normal respiratory effort Auscultation: clear to auscultation bilaterally GI: Inspection: other ( fundal height 41cm) GI Palp: Yes Soft to palpation and No Tenderness to palpation present (GI) : External Female Exam: normal external appearance Speculum Exam - Vagina: normal appearance of the vagina and normal vaginal discharge Speculum Exam - Cervix: normal appearance of the cervix and Other cervical findings present ( cervix fingertip thick and high) Bimanual exam- vagina & uterus: consistency normal Bimanual Exam- Adnexa, other: normal adnexae and No adnexal tenderness Neuro: General: patient oriented x3 Assessment and Plan Assessment and plan (1) 39 weeks gestation of : Code(s): Z3A.39 - 39 weeks gestation of Status: Acute Assessment and Plan: plan to proceed with repeat section (2) History of : Code(s): Z98.891 - History of uterine scar from previous surgery Status: Acute
[2023-05-24] MEDS: LACTATED RINGERS 1,000 ML 125 ML IV CONT (07:16)
[2023-05-24] MEDS: ceFAZolin 3 GM/D5W 100 ML 100 ML IVPB (07:20)
--- NOTE | 2023-05-24 08:16 | W.PM.OBCSD ---
OB - Delivery Note Procedure Delivery date: 05/24/23 Pre-op diagnosis: Previous Delivery (x2) and Other ( intrauterine at 39 weeks; NIPT high risk for Nava syndrome) Post-op Diagnosis: Same Procedure Performed: Repeat Secondary branch: low cervical, transverse Surgeon: Nancy Perrin MD Anesthesia type: Spinal Description of Procedure/Findings: The patient was taken to the operating room and placed under spinal anesthesia in the dorsal supine position with a leftward tilt. Once anesthesia was deemed adequate she was prepped and draped in the usual sterile fashion. A Pfannenstiel skin incision was made through her prior incision and carried down to the underlying layer of fascia which was nicked in the midline and extended laterally using Tanner scissors. [facility] was used to tent the fascia which was then dissected off using sharp dissection due to adhesions. Peritoneum was entered with a Peon and extended with blunt traction. The bladder blade is placed. The vesicouterine peritoneum was tented and entered with Metzenbaum scissors and extended laterally. The bladder flap was created digitally. The bladder blade is replaced. The lower uterine segment was incised in a transverse fashion with the scalpel and extended with blunt traction laterally. Membranes were ruptured and clear fluid noted. The infant's head was brought into the incision and the construction project assistant applied fundal pressure delivering the head. The remainder of the was fully delivered and after delayed cord clamping the cord was clamped and cut. The was handed to the waiting nursery nurse. The placenta was removed using manual traction after cord blood cord gases were taken. The uterus is cleared of all clots and debris and exteriorized. The uterine incision was closed using 0 Monocryl in a running locked fashion. Same suture was used to imbricate. One additional ezfptx-vt-zohul suture was required at the right side. Good hemostasis is noted. The cul-de-sac is irrigated. The uterus was returned to the abdomen and the gutters are irrigated. The incision was again inspected noted to be hemostatic. The fascia was then closed using 0 Vicryl in a running fashion. Subcutaneous tissues were irrigated made hemostatic using Bovie cautery. Skin incisions closed using 4-0 Vicryl in a subcuticular fashion. Dermaflex was placed over the incision. Sponge, needle, and instrument counts are correct per the OR staff. Patient received Ancef prior to incision. Patient was taken to recovery in stable condition. Specimen: No Estimated Blood Loss: 260 Drains: Yes ( Pearson catheter) Packing: No Pathology: None sent Complications: No immediate complications Condition: Stable Disposition: Floor [place] Baby Date of : 05/24/23 Weeks of gestation at delivery: 39 gender: Female Weight (pounds): 8 Weight (ounces): 4 presentation: vertex Placenta delivery description: Spontaneous Cord Vessel Description: 3 Vessels score one minute: 9 score five minutes: 9
--- NOTE | 2023-05-24 08:21 | P.DS_ITS ---
DS: Admitting Diagnosis Discharge Date 05/26/23 Admitting Diagnosis intrauterine at 39 weeks previous section x2 NIPT high risk for Nava syndrome DS: Discharge Diagnosis Discharge Diagnosis (1) Delivery of third by section using transverse incision of lower segment of uterus: Code(s): O82 - Encounter for delivery without indication Status: Acute OB - DS: Summary OB Procedures : NST and Ultrasound OB Procedures Intrapartum: low cervical, transverse OB Procedures: : None Peripartum Data Delivery Method: Section Procedures: Procedures Operation Date: 05/24/23 07:30 <No data on this case meets the specified criteria> complications: none Status at Discharge Functional status at discharge: independent ambulation Overall status at discharge: patient is progressing back to baseline Time Spent with Patient Time attestation: Total time spent providing and/or coordinating discharge services: Discharge Plan Discharge Attending physician on discharge: Nancy Perrin Discharging Clinician: Nancy Perrin Anticipated Discharge Date/Time: 05/27/23 08:22 Patient Disposition: Home, Self-Care Activity: may shower, may drive after 2 weeks and pelvic rest Diet: regular Wound Care Instructions: incision open to air Patient Instructions: Antibiotic Form Stand Alone Forms: General Discharge Information Follow-up/Referrals: Nancy Perrin MD [Physician] - 1 Week ( and 6 week) Discharge Medications: New hydrocodone-acetaminophen 5-325 mg tablet 1 tablet PO Q4H PRN (Reason: pain) Qty: 10 0RF norethindrone (contraceptive) 0.35 mg tablet 0.35 mg PO DAILY Qty: 84 3RF Continued multivitamin [Daily Multi-Vitamin] Tablet 1 tablet PO DAILY ergocalciferol (vitamin D2) 1,250 mcg (50,000 unit) capsule 1 cap PO WEEKLY prenat.vits,david,mnk-oyxs-udbhy Tablet 1 tablet PO DAILY Date of admission: 05/24/23 05:17 Primary Care Provider: PHYSICIAN,[employer]ER[employer] SPECIALIST Admitting Provider: Nancy Perrin Attending physician on admission: Nancy Perrin Condition: Stable
[2023-05-24] MEDS: KETOROLAC 30 MG/ML VIAL (*BKC) 15 MG IV PUSH (08:33)
[2023-05-24] MEDS: diphenhydrAMINE HCl INJ 50 MG/ML VIAL 25 MG IV PUSH (10:14)
[2023-05-24] MEDS: OXYTOCIN 30 UNITS/NS 500 ML 30 UNITS/500 ML BAG 125 UNITS IV CONT (10:25)
--- NOTE | 2023-05-24 11:24 | OBPPTRN ---
1034 Patient transferred to post room #279 via stretcher. Support person present. Oriented to unit, room, information board, rooming in, admission packet and security measures. Patient verbalizes understanding.
--- NOTE | 2023-05-24 14:43 | PC.NURSE ---
[id number] Introductions were made, then consulted with patient to assess needs related to . Discussed with mother her?plans to feed?her infant, the?experience so far and her successful history with her other children. Mother verbalizes she is able to independently latch without discomfort and is responsively . is currently meeting outcomes for weight, output, jaundice, blood sugar and feeding frequencies of 8-12 times in 24 hours. Mother declines any additional assistance or education at this time. Mother is encouraged to call for assistance if her doesn?t latch, pain with latching, questions or concerns. Resources provided for inpatient with name written on the communication board. Mother voiced understanding of information and will call if there is a request for assistance. Primary RN is present.
[2023-05-24] MEDS: LIDOCAINE 5% PATCH 1 PATCH TRANSDERM (14:52)
[2023-05-24] MEDS: MULTIVIT/MIN/PREN/FOL AC/IRON TABLET 1 TAB PO (19:00)
[2023-05-24] MEDS: SIMETHICONE 80 MG TAB.CHEW PO (20:13)
[2023-05-24] MEDS: HYDROcodone/acetaminophen (*CRX) 5-325 MG TABLET 1 TAB PO (20:20)
[2023-05-24] MEDS: DOCUSATE SODIUM 100 MG CAPSULE PO (20:21)
[2023-05-25] MEDS: HYDROcodone/acetaminophen (*CRX) 5-325 MG TABLET 1 TAB PO ×5 (00:33→20:34)
[2023-05-25 00:45] VITALS: BP 117/74; PULSE 96; RESP 16; TEMP 36.4; O2SAT 97
[2023-05-25] MEDS: SIMETHICONE 80 MG TAB.CHEW PO ×4 (04:25→20:34)
[2023-05-25 05:08] LABS: Basophils Percent Auto 0.3 % (0.2-1.2); Eosinophils Absolute Auto 0.2 K/mm3 (0-0.3); Eosinophils Percent Auto 1.5 % (0-4.4); Hematocrit 35.2 % (37.0-47.0); Hemoglobin 11.7 g/dL (12.0-15.0); Immature Granulocyte Absolute 0.07 K/mm3 (0.00-0.031); Immature Granulocyte Percent A 0.6 % (0-0.5); Lymphocytes Absolute Auto 1.18 K/mm3 (0.9-3.2); Mean Corpuscular HGB Conc 33.2 g/dl (32-36); Mean Corpuscular Hemoglobin 31.7 pg (26-34); Mean Corpuscular Volume 95.4 fl (80-100); Mean Platelet Volume 10.1 fl (7.4-10.4); Monocytes Absolute Auto 1.1 K/mm3 (0.1-0.6); Monocytes Percent Auto 9.6 % (2.6-8.5); Neutrophils Absolute Auto 9.2 K/mm3 (1.3-6.7); Platelet Count Result 213 k/mm3 (150-375); Red Blood Count 3.69 M/mm3 (4.2-5.4); Red Cell Distribution Width 13.5 % (11.5-14.5); White Blood Count 11.8 K/mm3 (4.5-10.0)
[2023-05-25] MEDS: MULTIVIT/MIN/PREN/FOL AC/IRON TABLET 1 TAB PO (07:44)
[2023-05-25] MEDS: DOCUSATE SODIUM 100 MG CAPSULE PO ×2 (07:44→17:06)
--- NOTE | 2023-05-25 08:46 | WPDANLDPN2 ---
Anes-Prog Note L&D Date/Time: 05/25/23 08:46 Comfortable throughout: section Neuraxial method: spinal Epidural/Spinal procedure site: clean & non-tender Neuro status: Neuro function grossly intact. Cardiovascular status: normal Respiratory status: normal Airway patency: baseline Mental status: baseline Post-Op hydration status: normal Vital Signs: Last Vital Signs Temp 36.4 C 05/25/23 00:45 Pulse 96 05/25/23 00:45 Resp 16 05/25/23 00:45 BP 117/74 05/25/23 00:45 Pulse Ox 97 05/25/23 00:45 O2 Del Method Room Air 05/25/23 00:45 Pain score (VAS): 2 I/O: Intake & Output 05/24/23 05/25/23 05/25/23 23:59 07:59 15:59 Intake Total 1050 1500 Output Total 550 350 Balance 500 1150 Post-procedural complaints: none Patient feedback: Patient satisfied with anesthetic care.
--- NOTE | 2023-05-25 08:47 | WPDANLDNPN2 ---
Anes-Prog Note L&D-Neuraxial Date/Time: 05/25/23 08:47 Neuraxial medications: intrathecal PF morphine Opiod-related complaints: none Patient feedback: Patient satisfied with post-operative pain management.
[2023-05-25 08:48] VITALS: BP 128/84; PULSE 99; RESP 18; TEMP 36.6; O2SAT 97
--- NOTE | 2023-05-25 09:09 | PM.OBPNVD ---
OB - PN: Subj Subjective Date/time seen: 05/25/23 09:09 Patient comments: no complaints and pain well controlled baby status: doing well OB - PN: Obj Data Labs 05/25/23 04:30 Labs: Laboratory Results - last 24 hr 05/25/23 04:30 WBC 11.8 H RBC 3.69 L Hgb 11.7 L Hct 35.2 L MCV 95.4 MCH 31.7 MCHC 33.2 RDW 13.5 Plt Count 213 MPV 10.1 Immature Gran % (Auto) 0.6 H Neut % (Auto) 78.0 H Lymph % (Auto) 10.0 L Tyler % (Auto) 9.6 H Eos % (Auto) 1.5 Baso % (Auto) 0.3 Lymph # (Auto) 1.18 Tyler # (Auto) 1.1 H Eos # (Auto) 0.2 Baso # (Auto) 0.0 Abs Immat Gran (auto) 0.07 H Absolute Neuts (auto) 9.2 H Absolute Nucleated RBC 0.0 Nucleated RBC % 0.0 OB - PN A/P Plan day: 1 Plan: routine care Time Spent With Patient Time: Total time spent is greater than 50% in coordination of care (as documented) at patient's floor/unit and/or counseling patient: Exam Narrative: inc c/d/i : Bimanual exam- vagina & uterus: other (Uterus firm, nt @U)
--- NOTE | 2023-05-25 11:37 | PC.NURSE ---
[id number] Purposefully rounded to assess for needs. Mother states she is independently infant with no pain but prefers one breast over another at times. We discussed this is typical behavior at this stage and mother was encouraged to call for assistance with the next session. [phone] Mother called RN to the room and is demonstrating effectively on the left breast using a football position. Infant is optimally latched with rocking jaw motion, dropping of the lower jaw with appropriate swallowing and no distress. Parents and RN discussed what to watch for to know is effectively , getting adequate intake, output, and jaundice, weight are appropriate at this time with mother responsibly.
[2023-05-25 20:40] VITALS: BP 135/94; PULSE 102; RESP 18; TEMP 36.8; O2SAT 95
[2023-05-26] MEDS: HYDROcodone/acetaminophen (*CRX) 5-325 MG TABLET 1 TAB PO ×5 (04:14→21:26)
--- NOTE | 2023-05-26 07:40 | PM.OBPNVD ---
OB - PN: Subj Subjective Date/time seen: 05/26/23 07:40 Patient comments: no complaints and pain well controlled baby status: doing well OB - PN: Obj Data Labs 05/25/23 04:30 OB - PN A/P Plan day: 2 Plan: routine care, discharge home and other (plans POP until vasectomy) Time Spent With Patient Time: Total time spent is greater than 50% in coordination of care (as documented) at patient's floor/unit and/or counseling patient: Exam : Bimanual exam- vagina & uterus: other (Uterus firm, nt @U)
[2023-05-26 07:45] VITALS: BP 133/94; PULSE 84; RESP 18; TEMP 37.1; O2SAT 98
[2023-05-26] MEDS: DOCUSATE SODIUM 100 MG CAPSULE PO ×2 (08:00→17:29)
[2023-05-26] MEDS: MULTIVIT/MIN/PREN/FOL AC/IRON TABLET 1 TAB PO (08:00)
--- NOTE | 2023-05-26 15:39 | PC.NURSE ---
[id number] Mother led the conversation with her experience so far, plan to feed her , and her ability to independently latch optimally without discomfort and is demonstrating effectively . Reminded mother to use good handwashing technique to prevent infection. Mother is feeding appropriately for growth of and understands stimulating infant to eat if needed. has had appropriate feedings in the last 24 hours meets the outcomes for weight, plenty of output, blood sugar and jaundice at this time. Mother states she is confident to continue effectively her at home, when to call for assistance, denies any additional assistance or education at this time. Reinforced understanding of milk production, transition of milk, signs of adequate intake, transition of stool, prevention/relief of engorgement, plugged ducts, mastitis, responsive watching for feeding cues, the different methods of stimulating to breastfeed 1-3 hours after the start of the last feeding, community resources, medication information reviewed per [facility] and when to call a provider using the resource of the mom and baby guide. Mother voiced understanding of the education shared. Reported to the Primary RN. [id number] LC was called to the room and mother led the conversation of her concerns with how her infant is doing. Reviewed with mother there has been 14 voids since , 9 stools in life, jaundice level requires no treatment, approximately 5% weight loss which is not uncommon, mother states the nasal blockage has been resolved and the heart murmur is present. Reviewed with mother to have a conversation with the Supervisor [employer] on staff this evening. Reported to the Primary RN.
[2023-05-26 20:20] VITALS: BP 146/103; PULSE 94; RESP 18; TEMP 36.5; O2SAT 97
== END 2023-05-26 21:26 | disposition home or self-care (01) | DRG 540 ==
LOC: ANHLDR 08:23 → ANHOB2 10:57
PROVIDERS: Admitting Provider Obstetrics & Gynecology Gynecology; Visit Provider Obstetrics & Gynecology Gynecology
PROC: 10D00Z1 Extraction of Products of Conception, Low, Open Approach (ICD-10-PCS; CPT 59514; principal; 2023-05-24 07:30)
DX: O34.219 Maternal care for unspecified type scar from previous cesarean delivery (principal); O35.14 Maternal care for (suspected) chromosomal abnormality in fetus, Turner Syndrome; O98.52 Other viral diseases complicating childbirth; B00.9 Herpesviral infection, unspecified; O99.824 Streptococcus B carrier state complicating childbirth; O99.844 Bariatric surgery status complicating childbirth; Z3A.39 39 weeks gestation of pregnancy; Z37.0 Single live birth; Z90.49 Acquired absence of other specified parts of digestive tract
CPT/HCPCS: 36415; 85025; A9270; J0690; J1100; J1200; J1885; J2274; J2371; J2405; J2590; J7120

== ENCOUNTER 2023-05-31 11:54 | Outpatient (CLI) | payer OTHER, SELFPAY ==
[2023-05-31 12:22] VITALS: BP 147/103; PULSE 78
[2023-05-31 12:27] LABS: Basophils Percent Auto 0.5 % (0.2-1.2); Eosinophils Absolute Auto 0.2 K/mm3 (0-0.3); Eosinophils Percent Auto 2.7 % (0-4.4); Hematocrit 37.1 % (37.0-47.0); Hemoglobin 12.5 g/dL (12.0-15.0); Immature Granulocyte Absolute 0.05 K/mm3 (0.00-0.031); Immature Granulocyte Percent A 0.6 % (0-0.5); Lymphocytes Absolute Auto 1.36 K/mm3 (0.9-3.2); Lymphocytes Percent Auto 16.5 % (18.3-44.2); Mean Corpuscular HGB Conc 33.7 g/dl (32-36); Mean Corpuscular Volume 92.1 fl (80-100); Monocytes Absolute Auto 0.7 K/mm3 (0.1-0.6); Monocytes Percent Auto 8.6 % (2.6-8.5); Neutrophils Absolute Auto 5.9 K/mm3 (1.3-6.7); Neutrophils Percent Auto 71.1 % (45.5-73.1); Platelet Count Result 284 k/mm3 (150-375); Red Blood Count 4.03 M/mm3 (4.2-5.4); Red Cell Distribution Width 12.8 % (11.5-14.5); White Blood Count 8.3 K/mm3 (4.5-10.0)
[2023-05-31 12:30] VITALS: BP 149/101; PULSE 79
[2023-05-31 12:36] LABS: Alanine Aminotransferase 15 U/L (6-35); Albumin Level 3.5 g/dL (3.5-5.1); Alkaline Phosphatase 82 U/L (38-126); Anion Gap 6 mmol/L (8-16); Aspartate Amino Transferase 25 U/L (14-36); Bilirubin,Total 0.9 mg/dL (0.2-1.3); Blood Urea Nitrogen 12 mg/dL (7-17); Calcium 8.5 mg/dL (8.4-10.2); Carbon Dioxide 27 mmol/L (22-30); Chloride 107 mmol/L (98-107); Estimated Glomerular Filt Rate > 60; Glucose 64 mg/dL (65-110); Potassium 3.9 mmol/L (3.4-5.0); Sodium 140 mmol/L (137-145); Uric Acid 6.6 mg/dL (2.5-7.5)
[2023-05-31 12:45] VITALS: BP 146/101; PULSE 76
[2023-05-31 13:00] VITALS: BP 142/99; PULSE 74
[2023-05-31 13:15] VITALS: BP 143/98; PULSE 74
[2023-05-31 13:30] VITALS: BP 146/101; PULSE 79
--- NOTE | 2023-05-31 13:34 | PC.NURSE ---
Dr. Perrin notified of lab results and blood pressures. Orders received to send patient home with script for 100 of labetalol BID and follow up in office this tuesday. Patient in agreement with plan of care.
--- NOTE | 2023-05-31 13:57 | PC.NURSE ---
ETHNOLOGY PROFESSOR at bedside. Concerns of throbbing pain in back radiating to head discussed with pt. Pt assessed by ETHNOLOGY PROFESSOR. No anesthesia concerns at this time.
== END 2023-05-31 14:05 | disposition home or self-care (01) ==
LOC: ANHOBOP 11:57 → ANHOBPP 11:58
PROVIDERS: Visit Provider Obstetrics & Gynecology Gynecology
DX: O13.9 Gestational [pregnancy-induced] hypertension without significant proteinuria, unspecified trimester (principal); Z3A.00 Weeks of gestation of pregnancy not specified
CPT/HCPCS: 36415; 80053; 84550; 85025; 99199